=== PATIENT | female | born 1955 | race Caucasian/White ===

== ENCOUNTER 2018-01-08 13:23 | Outpatient (CLI) | payer BC | END 2018-01-08 13:24 | disposition home or self-care (01) | LOC: BICMAMMO 13:23 | PROVIDERS: ATTEND Obstetrics & Gynecology Gynecologic Oncology | DX: Z12.31 Encounter for screening mammogram for malignant neoplasm of breast (principal); Z80.3 Family history of malignant neoplasm of breast; Z85.43 Personal history of malignant neoplasm of ovary | CPT/HCPCS: 77063; 77067 ==

== ENCOUNTER 2018-04-18 08:31 | Outpatient (CLI) | payer BC ==
--- NOTE | 2018-04-18 09:44 | RAD ---
SUPINE ABDOMEN: History: Abdominal pain. FINDINGS: Scattered stool and gas seen throughout the colon. There is scattered small bowel gas. There is a sin gle loop of mildly dilated gas filled small bowel in the left abdomen. Numerous surgical clips are no des. No mass effect or abnormal calcification. IMPRESSION: Nonspecific small bowel gas pattern. POS: C
== END 2018-04-18 08:32 | disposition home or self-care (01) ==
LOC: RAD-FRANK 08:31
PROVIDERS: ATTEND Nurse Practitioner Family
DX: R10.9 Unspecified abdominal pain (principal)
CPT/HCPCS: 74018

== ENCOUNTER 2018-05-04 07:25 | Outpatient (CLI) | payer BC ==
--- NOTE | 2018-05-04 09:28 | CT ---
CT ABDOMEN AND PELVIS WITH IV AND ORAL CONTRAST: Date: 05/04/18 PROVIDED CLINICAL HISTORY: Periumbilical pain. History of ovarian cancer. FINDINGS: Visualized lung bases are free of significant opacity. Comparison made with studies dated 09/19/13 and 07/28/14. There is a subcentimeter circumscribed hypodense focus within the medial segment of the left hepatic lobe, which appears new with respect to prior examination, but demonstrates CT features typical for a cyst. This is incompletely characterized on the basis of its small size. There is Dulce Maria configurati on of the right hepatic lobe. The solid abdominal organs demonstrate an otherwise unremarkable CT kamar earance. Postoperative changes are seen involving a loop of small bowel within the left mid abdomen. There is a focally ectatic appearance to the small bowel in the region of postoperative change. There is no ev idence for bowel obstruction. No inflammatory fat stranding, free fluid, or lymph node enlargement apparent. No evidence for a jorge luis toneal based soft tissue mass. Surgical clips are noted within the retroperitoneum and pelvis. Changes of prior hysterectomy are not ed. Vascular calcifications are seen involving the abdominal aorta. There is a small, fat-containing periumbilical hernia. The osseous structures demonstrate no concerning lytic or blastic lesions. Degenerative changes are s een involving the spine. IMPRESSION: 1. Small, fat-containing periumbilical hernia. 2. Subcentimeter hepatic hypodensity, too small to definitively characterize, but with CT features s uggesting a cyst. 3. Other chronic findings as above. POS: [facility]
[2018-05-04] MEDS ORDERED: ISOVUE-370 76%-LOCM 1 ML ONE (12:31)
== END 2018-05-04 07:26 | disposition home or self-care (01) ==
LOC: BICCT 07:25
PROVIDERS: ATTEND Internal Medicine Gastroenterology
DX: R10.33 Periumbilical pain (principal); K42.9 Umbilical hernia without obstruction or gangrene; R93.2 Abnormal findings on diagnostic imaging of liver and biliary tract; M47.9 Spondylosis, unspecified; I70.0 Atherosclerosis of aorta; Z85.43 Personal history of malignant neoplasm of ovary; Z90.710 Acquired absence of both cervix and uterus
CPT/HCPCS: 74177; 82565; Q9966

== ENCOUNTER 2018-09-04 08:21 | Outpatient (CLI) | payer BC ==
--- NOTE | 2018-09-04 09:31 | CT ---
CT OF ABDOMEN WITH AND WITHOUT CONTRAST: DATE: 09/04/2018. COMPARISON: 05/04/2018, 07/28/2014, and 03/14/2014. HISTORY: Reevaluate liver lesion. TECHNIQUE: Axial CT imaging obtained at 5 mm intervals through the abdomen with oral contrast, with and without IV contrast. Coronal reformatted imaging obtained. FINDINGS: The imaged lung bases appear grossly unremarkable. There is a tiny hypodense lesion within the medial segment of the left lobe of the liver measuring ap proximately 7 mm, too small to characterize. No appreciable enhancement is seen. This is unchanged when compared to the to 05/04/2018 examination and statistically, likely represents a small cyst or pos sibly a benign biliary hamartoma. No additional hepatic abnormality noted. Spleen, gallbladder, pancreas, adrenal glands, and kidneys demonstrate no acute findings. The partially imaged bowel appears unremarkable. The pelvis is not imaged on this exam. Postoperative clips are noted within the retroperitoneum. No abdominal lymphadenopathy. Review of the osseous structures demonstrates multilevel disc space narrowing with multilevel osteoph yte formation and multilevel lower lumbar spine facet hypertrophic change. No worrisome lytic or blastic bone lesions. IMPRESSION: Subcentimeter nonspecific stable hypodense lesion within the left lobe of the liver. No acute finding s. Transcribed Date/Time: 09/04/2018 10:15 AM
== END 2018-09-04 08:22 | disposition home or self-care (01) ==
LOC: BICCT 08:21
PROVIDERS: ATTEND Internal Medicine Gastroenterology
DX: K76.9 Liver disease, unspecified (principal)
CPT/HCPCS: 74170; 82565

== ENCOUNTER 2019-01-09 07:51 | Outpatient (CLI) | payer MEDICARE, OTHER ==
--- NOTE | 2019-01-09 08:42 | BD ---
DEXA SCAN: 01/09/2019 PROVIDED CLINICAL HISTORY: Postmenopausal screening. LUMBAR SPINE BMD (g/cm2) T-SCORE L1 1.022 0.3 L2 0.916 -1.0 L3 1.932 -1.4 L4 1.027 -0.3 TOTAL 0.978 -0.6 LEFT FEMORAL NECK 0.635 -1.9 TOTAL 0.864 -0.6 RIGHT FEMORAL NECK 0.643 -1.9 TOTAL 0.861 -0.7 TEN YEAR FRACTURE RISK: Major osteoporosis fracture 10%. Hip fracture 2.3%. IMPRESSION: The calculated bone mineral density meets WHO criteria for osteopenia in each femoral neck and places the patient at increased risk for fracture. POS: OFF
--- NOTE | 2019-01-09 10:28 | MMO ---
Bilateral MAMMO Bilat Screen [facility]. CLINICAL HISTORY: Patient is 63 years old and is seen for screening. The patient has the following family history of breast cancer: 3 cousin females, maternal. The patient has a history of ovarian cancer at age 55. VIEWS: The views performed were: bilateral craniocaudal with tomosynthesis and bilateral mediolateral oblique with tomosynthesis. FILMS COMPARED: The present examination has been compared to prior imaging studies performed at [facility] on 09/02/2014, 09/04/2015, 09/05/2016 and 01/08/2018. This study has been interpreted with the assistance of computer-aided detection. MAMMOGRAM FINDINGS: There are scattered fibroglandular densities. There are no suspicious masses, suspicious calcifications, or new areas of architectural distortion. IMPRESSION: THERE IS NO MAMMOGRAPHIC EVIDENCE OF MALIGNANCY. A ROUTINE FOLLOW-UP MAMMOGRAM IN 1 YEAR IS RECOMMENDED. THE RESULTS OF THIS EXAM WERE SENT TO THE PATIENT. ACR BI-RADS Category 1 - Negative MAMMOGRAPHY NOTE: 1. A negative mammogram report should not delay a biopsy if a dominant of clinically suspicious mass is present. 2. Approximately 10% to 15% of breast cancers are not detected by mammography. 3. Adenosis and dense breasts may obscure an underlying neoplasm. Reported by: JUAN LUIS CASAS MD Electonically Signed: [id number]
== END 2019-01-09 07:52 | disposition home or self-care (01) ==
LOC: BICMAMMO 07:51
PROVIDERS: ATTEND Obstetrics & Gynecology Gynecologic Oncology
DX: Z12.31 Encounter for screening mammogram for malignant neoplasm of breast (principal); Z13.820 Encounter for screening for osteoporosis; M85.89 Other specified disorders of bone density and structure, multiple sites; Z85.43 Personal history of malignant neoplasm of ovary; Z80.3 Family history of malignant neoplasm of breast
CPT/HCPCS: 77063; 77067; 77080

== ENCOUNTER 2021-03-05 09:37 | Outpatient (CLI) | payer MEDICARE, OTHER | END 2021-03-05 09:38 | disposition home or self-care (01) | LOC: RAD-FRANK 09:37 | PROVIDERS: ATTEND Nurse Practitioner Family | DX: R06.02 Shortness of breath (principal) | CPT/HCPCS: 71046 ==

== ENCOUNTER 2022-01-19 09:37 | Inpatient (IN) | payer MEDICARE, OTHER ==
[2022-01-19] MEDS ORDERED: Ketorolac Tromethamine 30 MG/ML VIAL ONE (10:00)
[2022-01-19] MEDS ORDERED: Morphine 4 MG/ML VIAL ONE ×2 (10:00→10:34)
[2022-01-19 11:03] LABS: Hemoglobin 13.8 g/dL (12.0-16.0); Mean Corpuscular HGB CONC 32.6 g/dL (32.0-36.0); Mean Corpuscular Volume 91.9 fl (78.0-98.0); Mean Platelet Volume 9.5 fL (7.4-10.4); Platelet Count 192 thou/uL (130-400); RBC Distribution Width 12.7 % (11.5-14.5); Red Blood Cell (RBC) Count 4.62 mill/uL (4.20-5.40); White Blood Cell (WBC) Count 13.5 thou/uL (4.8-10.8)
[2022-01-19 11:22] LABS: ALT (SGPT) 10 U/L (8-55); AST (SGOT) 13 U/L (5-34); Albumin 3.9 g/dL (3.4-4.8); Alkaline Phosphatase 82 U/L (40-110); Anion Gap 16 mmol/L (10-20); BUN (Urea Nitrogen) 16 mg/dL (9.8-20.1); Bilirubin, Total 0.5 mg/dL (0.2-1.2); Calc. Creatinine Clearance 0 mL/min (70-130); Calcium 8.4 mg/dL (7.8-10.44); Carbon Dioxide 23 mmol/L (23-31); Chloride 103 mmol/L (98-107); Estimated GFR 85; Globulin 2.6 g/dL (2.4-3.5); Glucose 110 mg/dL (80-115); Potassium 5.1 mmol/L (3.5-5.1); Protein, Total 6.5 g/dL (5.8-8.1); Sodium 137 mmol/L (136-145)
[2022-01-19 11:32] LABS: Band 2 % (5-11); Lymphocytes 10 % (21-51); MDiff Complete? YES; Monocytes 4 % (0-10); Neutrophil 83 % (42-75); Platelet Morphology Comment Appears Adequate; RBC Morphology Normal
[2022-01-19] MEDS ORDERED: hydrALAZINE 20 MG/ML VIAL SLOW IVP PRN (11:40)
[2022-01-19] MEDS ORDERED: Ondansetron PF 4 MG/2 ML Vial IVP PRN (11:40)
[2022-01-19] MEDS ORDERED: Cyclobenzaprine 10 MG TAB PO PRN (11:43)
[2022-01-19] MEDS ORDERED: Clindamycin/D5W 900 MG in Premix Bag 1 BAG IVPB SCH (11:45)
[2022-01-19] MEDS ORDERED: Fentanyl 100 MCG/2 ML VIAL ONE ×2 (12:41→14:34)
[2022-01-19 13:03] LABS: SARS-CoV-2 NAA Rapid Test Not Detected (NotDetected)
[2022-01-19] MEDS ORDERED: fentaNYL PF 100 MCG/2 ML SYRINGE ONE (16:02)
[2022-01-19] MEDS ORDERED: Clindamycin/D5W 900 mg/50 ml Premix Bag ONE (16:18)
[2022-01-19] MEDS ORDERED: Ondansetron PF 4 MG/2 ML Vial ONE (16:34)
[2022-01-19] MEDS ORDERED: Dexamethasone 20 MG/5 ML VIAL ONE (16:34)
[2022-01-19] MEDS ORDERED: PROPOFOL 200 MG/20 ML VIAL ONE (16:34)
[2022-01-19] MEDS ORDERED: ePHEDrine 50 MG/ML VIAL ONE (16:34)
[2022-01-19] MEDS ORDERED: Promethazine HCl 25 MG/ML VIAL IM PRN (17:10)
[2022-01-19] MEDS ORDERED: Promethazine HCl 25 MG/ML VIAL IVPB PRN (17:10)
[2022-01-19] MEDS ORDERED: Ondansetron HCl/PF 4 MG/2 ML Vial IVP PRN (17:10)
[2022-01-19] MEDS ORDERED: FENTANYL 50 MCG/ML 1 ML VIAL ONE ×3 (17:41→19:21)
[2022-01-19] MEDS: Sodium Chloride 0.9% 1,000 ML IV SCH ×3 (21:17→21:44)
[2022-01-19] MEDS: Famotidine/PF 20 mg/2ml Vial SLOW IVP SCH (21:24)
[2022-01-19] MEDS: traMADol HCl 50 MG TAB PO PRN (21:34)
[2022-01-19] MEDS: Senokot S 8.6-50 MG TAB PO SCH (21:35)
[2022-01-19] MEDS: traMADol HCl 50 MG TAB PO SCH ×2 (21:36→21:37)
[2022-01-19] MEDS: Acetaminophen 500 MG TAB PO SCH (21:36)
[2022-01-20] MEDS: Acetaminophen 500 MG TAB PO SCH ×4 (00:32→17:50)
[2022-01-20] MEDS: traMADol HCl 50 MG TAB PO SCH ×4 (00:35→17:50)
[2022-01-20] MEDS: Clindamycin/D5W 900 MG in Premix Bag 1 BAG IVPB SCH ×2 (00:36→09:09)
[2022-01-20 01:22] VITALS: BMI 40.6
[2022-01-20 05:23] LABS: Bacteria/HPF None Seen HPF (None Seen); Bilirubin Negative (Negative); Blood, Urine Negative (Negative); Clarity Clear (Clear); Glucose, Urine (Dipstick) Normal (Negative); Ketone, Urine Negative (Negative); Leukocyte Negative Leu/uL (Negative); Nitrite Negative (Negative); Protein, Urine (Dipstick) 50 mg/dL (Neg-Trace); RBC/HPF 0-3 HPF (0-3); Specific Gravity, Urine 1.033 (1.002-1.036); Squamous Epithelial 0-3 HPF (0-3); Urobilinogen Normal mg/dL (Less than 2); WBC/HPF 0-3 HPF (0-3)
[2022-01-20 05:27] LABS: Urine Culture Reflex No No
[2022-01-20] MEDS: Sodium Chloride 0.9% 1,000 ML IV SCH (05:46)
[2022-01-20 06:12] LABS: #Lymphocytes 0.5 thou/uL (1.20-3.40); #Monocytes 0.2 thou/uL (0.11-0.59); #Neutrophils 7.7 thou/uL (1.40-6.50); %Eosinophils 0.2 % (0.0-10.0); %Lymphocytes 6.1 % (21.0-51.0); %Monocytes 2.8 % (0.0-10.0); %Neutrophils 90.9 % (42.0-75.0); Hemoglobin 11.6 g/dL (12.0-16.0); Mean Corpuscular HGB CONC 31.8 g/dL (32.0-36.0); Mean Corpuscular Hemoglobin 29.8 pg (27.0-31.0); Mean Corpuscular Volume 93.8 fl (78.0-98.0); Mean Platelet Volume 8.4 fL (7.4-10.4); Platelet Count 245 thou/uL (130-400); RBC Distribution Width 12.5 % (11.5-14.5); Red Blood Cell (RBC) Count 3.89 mill/uL (4.20-5.40); White Blood Cell (WBC) Count 8.4 thou/uL (4.8-10.8)
[2022-01-20 06:35] LABS: Anion Gap 14 mmol/L (10-20); BUN (Urea Nitrogen) 14 mg/dL (9.8-20.1); Calc. Creatinine Clearance 116 mL/min (70-130); Calcium 8.3 mg/dL (7.8-10.44); Carbon Dioxide 23 mmol/L (23-31); Chloride 104 mmol/L (98-107); Estimated GFR 85; Glucose 148 mg/dL (80-115); Potassium 4.2 mmol/L (3.5-5.1); Sodium 137 mmol/L (136-145)
[2022-01-20] MEDS ORDERED: Polyethylene Glycol 3350 17 GM Packet PO SCH (09:00)
[2022-01-20] MEDS: traMADol HCl 50 MG TAB PO PRN (09:06)
[2022-01-20] MEDS: Famotidine/PF 20 mg/2ml Vial SLOW IVP SCH (09:08)
[2022-01-20] MEDS: Senokot S 8.6-50 MG TAB PO SCH ×2 (09:08→20:55)
[2022-01-20] MEDS: Aspirin 81 mg Enteric Coated Tablet PO SCH ×2 (09:08→20:55)
[2022-01-20] MEDS ORDERED: Morphine 2 MG/ML VIAL SLOW IVP SCH (10:00)
[2022-01-20] MEDS ORDERED: Promethazine HCl 25 MG/ML VIAL IM PRN (10:05)
[2022-01-20] MEDS ORDERED: Ropivacaine 0.2% HCl/PF 20 ML ONE (11:21)
[2022-01-20] MEDS ORDERED: Ropivacaine 0.5% HCl/PF (150 MG/30 ML VIAL) ONE (11:21)
[2022-01-20] MEDS ORDERED: TETANUS, DIPHTHERIA TOX,ADULT (TDVAX) 0.5 ML VIAL IM ONE (11:40)
[2022-01-20] MEDS ORDERED: Morphine 2 MG/ML VIAL SLOW IVP PRN (11:54)
[2022-01-20] MEDS ORDERED: Morphine 4 MG/ML VIAL SLOW IVP PRN (12:03)
[2022-01-20] MEDS ORDERED: Morphine 4 MG/ML VIAL SLOW IVP SCH (12:15)
[2022-01-20] MEDS: Ibuprofen 200 MG TAB PO SCH ×2 (14:51→20:56)
[2022-01-20 21:00] VITALS: BP 119/74; TEMP 98
[2022-01-20] MEDS ORDERED: Famotidine 20 MG TAB PO SCH (21:00)
[2022-01-21] MEDS ORDERED: FLUoxetine HCl 20 MG CAP PO SCH (09:00)
== END 2022-01-20 22:45 | DRG 482 ==
LOC: ERS 09:37 → SDC 11:50 → SURG A 19:56
PROVIDERS: ADMIT Surgery; ATTEND Surgery
PROC: 0QS604Z Reposition Right Upper Femur with Internal Fixation Device, Open Approach (ICD-10-PCS; principal; 2022-01-19)
DX: S72.21XA Displaced subtrochanteric fracture of right femur, initial encounter for closed fracture (principal); Z20.822 Contact with and (suspected) exposure to COVID-19; I10 Essential (primary) hypertension; W01.0XXA Fall on same level from slipping, tripping and stumbling without subsequent striking against object, initial encounter; Y92.015 Private garage of single-family (private) house as the place of occurrence of the external cause; Z90.710 Acquired absence of both cervix and uterus; Z98.890 Other specified postprocedural states; Z88.5 Allergy status to narcotic agent; Z88.0 Allergy status to penicillin; Z85.43 Personal history of malignant neoplasm of ovary; Z92.21 Personal history of antineoplastic chemotherapy; Z92.3 Personal history of irradiation; Z90.49 Acquired absence of other specified parts of digestive tract; Z79.899 Other long term (current) drug therapy
CPT/HCPCS: 36415; 71045; 80048; 80053; 81001; 84484; 85025; 93005; 96374; 96375; 96376; C1713; G0390; J1100; J1885; J2270; J2405; J2704; J2795; J3010; J3490; J7050; S0028; U0002

== ENCOUNTER 2022-06-27 12:53 | Outpatient (CLI) | payer MEDICARE, OTHER | END 2022-06-27 12:54 | disposition home or self-care (01) | LOC: SCSCT 12:53 | PROVIDERS: ATTEND Physician Assistant Surgical | DX: S72.144D Nondisplaced intertrochanteric fracture of right femur, subsequent encounter for closed fracture with routine healing (principal); Z98.890 Other specified postprocedural states ==

== ENCOUNTER 2024-03-07 20:48 | Emergency (ER) | payer MEDICARE, OTHER ==
[~2024-03-07 20:48] MED LIST: Iopamidol-370 76% 500 ML MDV (1 ML CHARGE) ONE
[2024-03-07 21:21] LABS: #Basophils Less than 0.03 10x3/uL (0.0-0.2); %Basophils 0.2 % (0.0-1.0); %Eosinophils 2.1 % (0.0-10.0); %Lymphocytes 8.3 % (21.0-51.0); %Monocytes 6.6 % (0.0-10.0); %Neutrophils 82.5 % (42.0-75.0); Hematocrit 40.3 % (36.0-47.0); Hemoglobin 13.1 g/dL (12.0-16.0); Mean Corpuscular HGB CONC 32.5 g/dL (32.0-36.0); Mean Corpuscular Hemoglobin 27.9 pg (27.0-31.0); Mean Corpuscular Volume 85.9 fL (78.0-98.0); Mean Platelet Volume 10.7 fL (7.4-10.4); Platelet Count 315 10x3/uL (130-400); RBC Distribution Width 14.6 % (11.5-14.5); Red Blood Cell (RBC) Count 4.69 mill/uL (4.20-5.40)
[2024-03-07 21:34] LABS: ALT (SGPT) 12 U/L (8-55); AST (SGOT) 14 U/L (5-34); Albumin 3.5 g/dL (3.4-4.8); Alkaline Phosphatase 79 U/L (40-110); Anion Gap 18 mmol/L (10-20); BUN (Urea Nitrogen) 10 mg/dL (9.8-20.1); Bilirubin, Total 0.4 mg/dL (0.2-1.2); Calc. Creatinine Clearance 0 mL/min (70-130); Calcium 9.5 mg/dL (7.8-10.44); Carbon Dioxide 23 mmol/L (23-31); Chloride 107 mmol/L (98-107); Estimated GFR 87; Globulin 3.4 g/dL (2.4-3.5); Glucose 116 mg/dL (80-115); Protein, Total 6.9 g/dL (5.8-8.1); Sodium 144 mmol/L (136-145)
[2024-03-07] MEDS ORDERED: Ondansetron PF 4 MG/2 ML Vial ONE (22:12)
== END 2024-03-08 00:32 | disposition home or self-care (01) ==
LOC: ERS 20:48
DX: K59.89 Other specified functional intestinal disorders (principal); R11.2 Nausea with vomiting, unspecified; I10 Essential (primary) hypertension; Z55.0 Illiteracy and low-level literacy
CPT/HCPCS: 74177; 80053; 83690; 85025; J2405; Q9967; 36415; 96361; 96374